=== PATIENT | male | born 2000 | race Caucasian/White ===

== ENCOUNTER 2022-01-30 12:40 | Emergency (ER) | payer MEDICAID, SELFPAY ==
[2022-01-30 12:41] VITALS: BP 144/93; PULSE 77; RESP 14; TEMP 36.6; O2SAT 96; BMI 39.9
--- NOTE | 2022-01-30 12:55 | EX.ED.DYSGE1 ---
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 No definite exposure or bite. He was advised to be treated for rabies. No prior vaccination. No history of immune compromise. No symptoms PFSH PFSH Allergy/AdvReac Type Severity Reaction Status Date / Time No Known Allergies Allergy Verified 01/30/22 12:41 Social History Smoking Status: Never smoker ROS ROS ED Constitutional Constitutional ED: Denies chills Eyes Eyes: Denies blurry vision ENT ENT ED: Denies ear pain Cardiovascular Cardiovascular: Denies chest pain Respiratory/Chest Respiratory/Chest: Denies cough Gastrointestinal Gastrointestinal: Denies abdominal pain Genitourinary Genitourinary ED: Denies dysuria Musculoskeletal Musculoskeletal: Denies arthralgias Integumentary Denies abscess Neurologic Neurologic: Denies headache(s) Psychiatric Psychiatric: Denies anxiety Endocrine Endocrinology: Denies cold intolerance Hematologic/Lymphatic Hematologic/Lymphatic: Denies easy bruising Allergic/Immunologic Allergic/Immunologic ED: Denies mouth swelling EXAM Physical Exam Const Vital Signs: 01/30/22 12:41 Temperature 97.9 F Temperature Source Temporal Pulse Rate 77 Respiratory Rate 14 Blood Pressure 144/93 H Blood Pressure Mean 110 Pulse Ox 96 Oxygen Delivery Method Room Air Positive well nourished and well developed General Appearance ED: well developed HEENT Negative for trauma Eyes EOMs intact bilaterally Resp normal respiratory effort Cardio regular rate Neuro oriented x3 Sensorium / Orientation: alert Skin no rashes or lesions noted MDM MDM MDM Narrative Medical decision making narrative: Patient will be treated with the rabies immunoglobulin and vaccine series. He will be discharged home. Return for any issues. Impression #1 rabies immunization Impression #2 exposure to bat Discharge Plan Triage Chief Complaint: Bite ED Provider: Fran Berumen Dx/Rx/DC Orders Instructions: Understanding Rabies Activity Restrictions/Additional Instructions: This is day 0. Follow up on days 3, 7, AND 14 for further rabies vaccine series injections. Disposition Disposition: Home, Self Care
[2022-01-30] MEDS: Rabies Immune Globulin/PF 300 UNIT/ML, 5 ML VIAL 2530 UNIT IM (13:58)
[2022-01-30] MEDS: Rabies Vaccine,Human Diploid 2.5 UNITS Vial IM (14:11)
--- NOTE | 2022-01-30 14:12 | ED.RN ---
HYPERRAB SPLIT INTO 3 SHOTS. 2.4 ML IN LEFT DELTOID. 3 ML RIGHT AND LEFT THIGH. Delilah DE LA ROSA RN [id number]
[2022-01-30 14:32] VITALS: PULSE 85; RESP 16; O2SAT 98
== END 2022-01-30 14:33 | disposition home or self-care (01) ==
PROVIDERS: Emergency Provider Emergency Medicine; Visit Provider Emergency Medicine
DX: Z20.3 Contact with and (suspected) exposure to rabies (principal); Z23 Encounter for immunization
CPT/HCPCS: 90375; 90675; 99282

== ENCOUNTER 2022-08-29 22:37 | Emergency (ER) | payer MEDICAID, SELFPAY ==
--- NOTE | 2022-08-29 13:15 | RAD_ITS ---
INDICATION: chest wall pain EXAMINATION/TECHNIQUE: X-RAY - XR Chest 2 Views COMPARISON: None. Findings: Frontal and lateral views of the chest. LUNG PARENCHYMA: No acute focal airspace disease or mass lesion. PLEURA: No pleural effusion. No pneumothorax. HEART/GREAT VESSELS: Cardiomediastinal silhouette is unremarkable. BONES: Osseous structures are unremarkable for age. RAD/Chest PA and Lateral IMPRESSION: Chest with no acute disease. Electronically Signed: Gasper Canales MD at 23:27 EDT ,
[2022-08-29 22:38] VITALS: BP 147/75; PULSE 104; RESP 16; TEMP 37.2; O2SAT 96; BMI 36.8
--- NOTE | 2022-08-29 22:49 | EDS_ITS ---
HPI History of Present Illness Chief Complaint: Chest Pain Narrative Narrative: 21-year-old male, past medical history of ADHD presents with his friend because of chest wall pain that he has been having today. He states he has had a history of sore throat and upper respiratory infection type symptoms. He [facility] to the [facility] yesterday and they gave him pills of some sort which resolved his sore throat. He developed pain that is worse with movement on the right side of his sternum where the ribs fuse. Pain is worse with movement. He denies any fevers or chills. No real cough or other symptoms, no injury. [facility] Home Medications NK 01/30/22 [History Last Taken Unknown] Allergy/AdvReac Type Severity Reaction Status Date / Time No Known Allergies Allergy Verified 08/29/22 22:40 Social History Smoking Status: Never smoker ROS ROS ED ROS Narrative Constitutional: No fever, no chills. HEENT: No sore throat. No neck pain. No loss of vision. No rhinorrhea. Cardiovascular: Right parasternal border chest pain worse with movement. No palpitations. No pedal edema. Respiratory: No cough, no shortness of breath. Abdominal: No abdominal pain. No nausea. No vomiting. Genitourinary: No dysuria. No hematuria. Musculoskeletal: No myalgias. No arthralgias. Neurologic: No headaches. No dizziness. No lightheadedness. Skin: No rash. No change in color. Psychiatric: No depression. No anxiety. EXAM Physical Exam Narrative Exam Narrative: Afebrile. Vital signs noted. HEENT: Normocephalic. Atraumatic. PERRL, EOMI. Neck soft and supple. No point tenderness or step off. Cardiovascular: Regular rate and rhythm. No murmurs, rubs, or gallops appreciated. Respiratory: No tachypnea. Lungs clear to auscultation bilaterally. Reproducible right parasternal chest wall pain, no crepitance. Pain with movement of arms, and mainly with torso. Gastrointestinal: Abdomen soft, nontender, with normoactive bowel sounds. No rebound or guarding. Neurological: Awake. Alert. Nonfocal, nonlateralizing. Skin: No rash. Normal color. No pallor. Musculoskeletal: No pedal edema. Full range of motion extremities. Const Vital Signs: 08/29/22 22:38 Temperature 98.9 F Temperature Source Temporal Pulse Rate 104 H Respiratory Rate 16 Blood Pressure 147/75 H Blood Pressure Mean 99 Pulse Ox 96 Oxygen Delivery Method Room Air MDM MDM MDM Narrative Medical decision making narrative: I do feel that the patient has more chest wall pain/costochondritis. He has low risk factors for coronary artery disease and DVT/pulmonary embolism. He states he is unable to swallow pills although he was given pills yesterday, and he states he takes a chewable tablet for his ADHD. He was given an intramuscular injection of Toradol 60 mg as I do think this is more chest wall pain. Pulse ox is 96% on room air without evidence of hypoxia. He is afebrile here. Chest x- ray in 2 views will be obtained to rule out pneumothorax or pneumonia as a cause of his chest wall pain. I do not feel that laboratory work is indicated. I reviewed the patient's chest x-ray in 2 views and interpreted it independently. I see no evidence of pneumothorax rib fracture, or consolidation. I reviewed the radiology report which confirms my independent interpretation. At this point in time, upon repeat examination, he states he is feeling mildly improved. I feel he can be discharged safely home to take [id number] analgesics and follow-up with his primary care physician or the wellness center. Return instructions to the emergency department were reviewed. Disposition is discharged home in stable condition. Radiography Chest X-Ray - ED: 2 View and Read by ED Physician Diagnostic Testing: Clinical Impression(s) from Imaging Studies Chest X-Ray 08/29/22 13:15 IMPRESSION: Chest with no acute disease. Electronically Signed: Gasper Canales MD at 23:27 EDT , Discharge Plan Triage Chief Complaint: Chest Pain ED Provider: Joe Parsons Dx/Rx/DC Orders Clinical Impression: Chest wall pain, Costochondritis Instructions: ED Chest Wall Pain, Costochondritis, ED Chest Wall Strain Prescriptions: No Action NK Primary Care Provider: Care Physician,No Primary Referrals: Care Physician,No Primary [Primary Care Provider] - Disposition Disposition: Home, Self Care
--- NOTE | 2022-08-29 22:58 | EKG12_ITS ---
Test Reason : CP Blood Pressure : / mmHG Vent. Rate : 092 BPM Atrial Rate : 092 BPM P-R Int : 148 ms QRS Dur : 088 ms QT Int : 342 ms P-R-T Axes : 046 015 044 degrees QTc Int : 422 ms Normal sinus rhythm Normal ECG Confirmed by DEVON SMITH, ASHLEY ([id number]), editorial assistant DAVIDE LEONE ([id number]) on 08/31/2022 9:55:25 AM Referred By: AR Confirmed By:SRIDHAR OSORIO MD
[2022-08-29] MEDS: Ketorolac 60 MG/2 ML Vial IM (23:02)
== END 2022-08-30 00:14 | disposition home or self-care (01) ==
PROVIDERS: Emergency Provider Emergency Medicine; Visit Provider Emergency Medicine
DX: R07.89 Other chest pain (principal); F90.9 Attention-deficit hyperactivity disorder, unspecified type; M94.0 Chondrocostal junction syndrome [Tietze]; Z79.899 Other long term (current) drug therapy
CPT/HCPCS: 71046; 93005; 96372; 99282